=== PATIENT | female | born 1960 | race Caucasian/White ===

== ENCOUNTER 2017-01-10 12:08 | Outpatient (CLI) ==
--- NOTE | 2017-01-10 12:35 | DI ---
EXAM: Three views of the left thumb HISTORY: 2 years of left thumb pain. COMPARISON: Left hand x-ray 06/21/2016 FINDINGS: There is narrowing and osteophyte formation of the IP joint of the left thumb. There is n o definitive erosion identified. There is mild soft tissue swelling. The MCP joint and CMC joint a re unremarkable. The adjacent osseous structures are normal. There is no lytic or blastic lesion. 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
== END 2017-01-10 12:09 | disposition home or self-care (01) ==
LOC: RAD 12:08
PROVIDERS: ATTEND Family Medicine
DX: M19.90 Unspecified osteoarthritis, unspecified site (principal); M79.645 Pain in left finger(s)